=== PATIENT | female | born 2000 | race Caucasian/White ===

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

== ENCOUNTER 2022-08-04 11:55 | Inpatient (IN) ==
[2022-08-04 13:23] LABS: Basophils # (auto) 0.05 K/uL (0-0.2); Basophils % (auto) 0.7 %; Eosinophils # (auto) 0.06 K/uL (0-0.50); Eosinophils % (auto) 0.8 %; Hematocrit (blood only) 40.8 % (34.1-44.9); Hemoglobin 13.9 g/dl (12.0-16.0); Immature Granulocytes # (auto) 0.02 K/uL (0.00-0.02); Immature Granulocytes % (auto) 0.3 %; Lymphocytes # (auto) 1.95 K/uL (1.2-3.4); Lymphocytes % (auto) 27.5 %; Mean Corpuscular Hemoglobin 29.1 pg (25.0-34.0); Mean Corpuscular Hgb Conc 34.1 g/dL (32.0-36.0); Mean Corpuscular Volume 85.5 fL (80.0-100.0); Mean Platelet Volume 9.1 fL (9.4-12.3); Monocytes # (auto) 0.61 K/uL (0.24-0.82); Monocytes % (auto) 8.6 %; Neutrophils # (auto) 4.41 K/uL (1.4-6.5); Neutrophils % (auto) 62.1 %; Platelet Count 323 K/uL (130-400); RDW Coefficient of Variation 12.2 % (11.5-14.5); RDW Standard Deviation 37.9 fL (36.4-46.3); Red Blood Count 4.77 M/uL (3.93-5.22)
[2022-08-04 13:54] LABS: Albumin Globulin Ratio 1.5 (0.9-2); Albumin Level 4.8 gm/dl (3.4-5.0); BUN Creatinine Ratio 9.8 (10-20); Bilirubin,Total 0.5 mg/dl (0.2-1.0); Calcium 10.1 mg/dl (8.5-10.1); Creatinine Clr Calc Pharmacy 77.8 ml/min; Est GFR (African American) 104.6 ml/min; Est GFR (Non-African American) 90.3 ml/min; Globulin 3.1 gm/dl (2.5-4.0); Potassium 3.8 mmol/L (3.5-5.1); Total Protein 7.9 gm/dl (6.0-8.3)
--- NOTE | 2022-08-04 14:56 | Emergency Department Note ---
Impression & Plan Bilateral leg numbness, Ambulatory dysfunction ED Provider Note HISTORY OF PRESENT ILLNESS: Patient is a 21-year-old female presenting bilateral lower extremity numbness and extremity numbness. Patient states that she has had numbness from her to hip down to her bilateral feet intermittently over the last few months. She states she has been following with a spine doctor and going to physical therapy without any relief in her symptoms. She states that since last night she has had constant numbness of her bilateral lower extremities and has had weakness and difficulty getting around. She also states that she is developed numbness of her right upper extremity. Denies any family history of multiple sclerosis. Denies any fevers or history of IV drug use. Denies any recent back injuries chiropractic medication of her neck. Denies any recent head injuries. ROS: Constitutional: No fever, chills, or weakness Skin: No rash or diaphoresis HENT: No headaches or congestion Eyes: No vision changes Cardio: No chest pain, palpitations or leg swelling Respiratory: No cough, wheezing or shortness of breath GI: No nausea, vomiting, diarrhea, constipation : No dysuria, polyuria MSK: No joint or back pain Neuro: No loss of sensation, confusion, focal deficits +numbness; +tingling Psychiatric: No mood changes PHYSICAL EXAM: Constitutional: Patient appears in no acute distress. HENT: Head: Normocephalic and atraumatic. Eyes: EOMI, PERRL Mouth/Throat: Mucous membranes moist. Neck: Trachea midline. Neck supple. Cardiovascular: RRR, No murmurs, rubs or gallops. Intact distal pulses. Pulmonary/Chest: No respiratory distress. Breath sounds clear and equal bilaterally. No wheezes or rales. Abdominal: BS +. Abdomen soft, no tenderness, rebound or guarding. Back: No midline spinal tenderness, no paraspinal tenderness, no CVA tenderness. Musculoskeletal: No edema, tenderness or deformity noted. Skin: Warm and dry. No rash, erythema, pallor or cyanosis Psychiatric: Appropriate mood and affect for situation. Neurological: Alert and keenly responsive. Facies symmetric. Able to raise eyebrows, close eyes, smile, puff mouth, stick out tongue, move tongue left and right and raise palate symmetrically. Able to shrug shoulders. PERRLA. SILT to forehead below eye and at jawline. Can hear soft nose bilaterally. Strength 4/5 in bilateral lower extremities. Reports sensation in bilateral lower extremities, but states it feels dull. MDM: - Vitals signs stable. - Laboratory workup grossly unremarkable. - MRI brain and lumbar spine wo contrast negative for acute pathology. - On reassessment, patient complaining of continued, persistent pain and numbness down her legs. She is unable to ambulate independently to the restroom. - Hospitalist consulted for admission. - Patient admitted to hospitalist Dr. French's service for further evaluation and management. ASSESSMENT AND PLAN: Diagnosis: bilateral lower extremity numbness; ambulatory dysfunction Plan: admit Past Med/Surg History Medical History Abdominal pain Severe with mild nausea (reason for procedure) Anxiety and depression History of COVID-19 Diagnosed 09/2020--asymptomatic, tested prior to scheduled procedure--no issues now Migraine without aura Spondylolysis Surgical History Encounter for biopsy Diagnostic Laparoscopy, Laparoscopic Appendectomy, Left ovarian biopsy, Repair umbilical hernia Caleb Vieira, DO 07/23/2021 H/O eye surgery bilateral tube placement for clogged tear ducts. H/O umbilical hernia repair Diagnostic Laparoscopy, Laparoscopic Appendectomy, Left ovarian biopsy, Repair umbilical hernia Caleb Vieira, DO 07/23/2021 History of esophagogastroduodenoscopy (EGD) (~11/06/20) History of laparoscopic appendectomy Diagnostic Laparoscopy, Laparoscopic Appendectomy, Left ovarian biopsy, Repair umbilical hernia Caleb Vieira, DO 07/23/2021 History of tonsillectomy S/P colonoscopy Family History Aunt Cancer STOMACH CANCER Mother Cervical cancer Other Diabetes No family history of adverse response to anesthesia Denies family history of Ovarian cancer Crohn's disease Breast cancer Colorectal cancer Ulcerative colitis Uterine cancer Social History Smoking Status: Never smoker Tobacco Type: E-cigarettes / Vaping Second Hand Exposure: Yes (parents smoke); Hx Alcohol Use: No Hx Substance Use: No Preferred Language: Monegasque Communication Ability: Effective 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 Beliefs That Will Affect Care: None marital status: Single Current Living Situation: Family Current Living Situation Comment: Lives with parents/grandparents/sister current occupational status: employed Feels Safe at Home: Yes Assistive Devices: Contacts and Glasses Allergies Allergies Allergy/AdvReac Type Severity Reaction Status Date / Time Penicillins Allergy Unknown HAPPENED Verified 06/24/22 09:20 AN Home Meds Home Medications Medication Instructions Recorded Confirmed acetaminophen 500 mg tablet 500 mg PO Q6H PRN Pain 07/21/21 06/24/22 (Tylenol Extra Strength) sucralfate 1 gram tablet 1 g PO AMHS 07/22/21 06/24/22 bupropion HCl 150 mg 24 hr tablet, 150 mg PO QAM 03/06/22 06/24/22 extended release famotidine 20 mg tablet 20 mg PO BID 03/06/22 06/24/22 hydroxyzine pamoate 25 mg capsule 25 mg PO HS PRN Anxiety 03/06/22 06/24/22 prochlorperazine maleate 5 mg 5 mg PO DIRECTED PRN Nausea 03/06/22 06/24/22 tablet clindamycin phosphate 1 % lotion 1 applic topical QAM 06/01/22 06/24/22 doxycycline hyclate 100 mg tablet 100 mg PO QAM 06/01/22 06/24/22 naproxen 500 mg tablet 500 mg PO BID 06/01/22 06/24/22 Previous Rx's Medication Instructions Recorded promethazine 12.5 mg tablet 12.5 mg PO TID PRN nausea and 07/19/21 vomiting #20 tabs tretinoin 0.05 % topical cream 1 applic topical .COMPLEX #45 grams 11/12/21 ketorolac 10 mg tablet 10 mg PO Q6H #20 tabs 03/09/22 amitriptyline 10 mg tablet See Rx Instructions .Route 03/31/22 .COMPLEX #30 tabs medroxyprogesterone 150 mg/mL 150 mg IM ONCE #1 mL 05/26/22 intramuscular suspension (Depo-Provera) ibuprofen 600 mg tablet 600 mg PO Q8H PRN pain #20 tabs 06/07/22 ondansetron HCl 4 mg tablet 4 mg PO Q8H PRN nausea and 06/07/22 vomiting #20 tabs oxycodone-acetaminophen 5 mg-325 1 tab PO Q6H PRN pain #20 tabs 06/07/ mg tablet (Percocet) hydrocodone 5 mg-acetaminophen 325 1 tab PO Q8H PRN pain #20 tabs 06/08/22 mg tablet Results & Data (ED) Vital Signs Vital Signs - 24 hr 08/04/22 11:59 08/04/22 15:00 08/04/22 15:00 Temperature 36.0 C L Temperature Source Temporal Artery Scan Pulse Rate 94 H 75 Pulse Rate [Right Finger] Pulse Rate from SpO2 Sensor 78 Pulse Rhythm Regular Pulse Strength Normal Respiratory Rate 20 19 Respiratory Effort / Characteristics Non-Labored Spontaneous Respiratory Depth Normal Respiratory Pattern Regular Blood Pressure 116/76 120/73 Blood Pressure [Right Arm] Blood Pressure Mean 89 88 Blood Pressure Mean [Right Arm] Blood Pressure Position Sitting Pulse Oximetry 98 100 Oxygen Delivery Method Room Air Sepsis Recent Fever Within 48 Hours No Sepsis New/Unexplained Change in Mental Status No Sepsis Action Taken by Nursing No Action Required 08/04/22 16:36 08/04/22 16:36 08/04/22 17:00 Temperature Temperature Source Pulse Rate 83 Pulse Rate [Right Finger] Pulse Rate from SpO2 Sensor 79 Pulse Rhythm Pulse Strength Respiratory Rate 23 Respiratory Effort / Characteristics Respiratory Depth Respiratory Pattern Blood Pressure 105/66 107/70 Blood Pressure [Right Arm] Blood Pressure Mean 79 82 Blood Pressure Mean [Right Arm] Blood Pressure Position Pulse Oximetry 99 Oxygen Delivery Method Sepsis Recent Fever Within 48 Hours Sepsis New/Unexplained Change in Mental Status Sepsis Action Taken by Nursing 08/04/22 17:00 08/04/22 19:04 Temperature Temperature Source Pulse Rate 75 Pulse Rate [Right Finger] 74 Pulse Rate from SpO2 Sensor 77 Pulse Rhythm Pulse Strength Respiratory Rate 18 21 Respiratory Effort / Characteristics Respiratory Depth Normal Respiratory Pattern Blood Pressure Blood Pressure [Right Arm] 116/73 Blood Pressure Mean Blood Pressure Mean [Right Arm] 87 Blood Pressure Position Pulse Oximetry 100 98 Oxygen Delivery Method Room Air Sepsis Recent Fever Within 48 Hours Sepsis New/Unexplained Change in Mental Status Sepsis Action Taken by Nursing Laboratory Data Result diagrams: 08/04/22 13:12 08/04/22 13:12 Lab Results 08/04/22 08/04/22 08/04/22 Range/Units 13:12 13:12 13:12 WBC 7.10 (4.8-10.8) K/ul RBC 4.77 (3.93-5.22) M/uL Hgb 13.9 (12.0-16.0) g/dl Hct 40.8 (34.1-44.9) % MCV 85.5 (80.0-100.0) fL MCH 29.1 (25.0-34.0) pg MCHC 34.1 (32.0-36.0) g/dL RDW Std Deviation 37.9 (36.4-46.3) fL RDW Coeff of Jennifer 12.2 (11.5-14.5) % Plt Count 323 (130-400) K/uL MPV 9.1 L (9.4-12.3) fL Immature Gran % (Auto) 0.3 % Neut % (Auto) 62.1 % Lymph % (Auto) 27.5 % [place] % (Auto) 8.6 % Eos % (Auto) 0.8 % Baso % (Auto) 0.7 % Neut # (Auto) 4.41 (1.4-6.5) K/uL Lymph # (Auto) 1.95 (1.2-3.4) K/uL [place] # (Auto) 0.61 (0.24-0.82) K/uL Eos # (Auto) 0.06 (0-0.50) K/uL Baso # (Auto) 0.05 (0-0.2) K/uL Immature Gran # (Auto) 0.02 (0.00-0.02) K/uL Sodium 139 (136-145) mmol/L Potassium 3.8 (3.5-5.1) mmol/L Chloride 107 (98-107) mmol/L Carbon Dioxide 25 (21-32) mmol/L Anion Gap 7 (3-11) BUN 9 (6-23) mg/dl Creatinine 0.92 (0.6-1.2) mg/dl Est Cr Clr Drug Dosing 77.8 ml/min Est GFR ( Amer) 104.6 ml/min Est GFR (Non-Af Amer) 90.3 ml/min BUN/Creatinine Ratio 9.8 L (10-20) Glucose 86 (70-99(Fasting)) mg/dl Calcium 10.1 (8.5-10.1) mg/dl Magnesium 2.1 (1.7-2.4) mg/dl Total Bilirubin 0.5 (0.2-1.0) mg/dl AST 20 (13-39) U/L ALT 18 (7-52) U/L Alkaline Phosphatase 50 (34-104) U/L Total Protein 7.9 (6.0-8.3) gm/dl Albumin 4.8 (3.4-5.0) gm/dl Globulin 3.1 (2.5-4.0) gm/dl Albumin/Globulin Ratio 1.5 (0.9-2) Urine Color Urine Appearance (Clear) Urine pH (4.5-7.5) Ur Specific [place] (1.000-1.030) Urine Protein (Negative) Urine Glucose (UA) (Negative) Urine Ketones (Negative) Urine Blood (Negative) Urine Nitrite (Negative) Urine Bilirubin (Negative) Urine Urobilinogen (Negative) Ur Leukocyte Esterase (Negative) 08/04/22 Range/Units 16:35 WBC (4.8-10.8) K/ul RBC (3.93-5.22) M/uL Hgb (12.0-16.0) g/dl Hct (34.1-44.9) % MCV (80.0-100.0) fL MCH (25.0-34.0) pg MCHC (32.0-36.0) g/dL RDW Std Deviation (36.4-46.3) fL RDW Coeff of Jennifer (11.5-14.5) % Plt Count (130-400) K/uL MPV (9.4-12.3) fL Immature Gran % (Auto) % Neut % (Auto) % Lymph % (Auto) % [place] % (Auto) % Eos % (Auto) % Baso % (Auto) % Neut # (Auto) (1.4-6.5) K/uL Lymph # (Auto) (1.2-3.4) K/uL [place] # (Auto) (0.24-0.82) K/uL Eos # (Auto) (0-0.50) K/uL Baso # (Auto) (0-0.2) K/uL Immature Gran # (Auto) (0.00-0.02) K/uL Sodium (136-145) mmol/L Potassium (3.5-5.1) mmol/L Chloride (98-107) mmol/L Carbon Dioxide (21-32) mmol/L Anion Gap (3-11) BUN (6-23) mg/dl Creatinine (0.6-1.2) mg/dl Est Cr Clr Drug Dosing ml/min Est GFR ( Amer) ml/min Est GFR (Non-Af Amer) ml/min BUN/Creatinine Ratio (10-20) Glucose (70-99(Fasting)) mg/dl Calcium (8.5-10.1) mg/dl Magnesium (1.7-2.4) mg/dl Total Bilirubin (0.2-1.0) mg/dl AST (13-39) U/L ALT (7-52) U/L Alkaline Phosphatase (34-104) U/L Total Protein (6.0-8.3) gm/dl Albumin (3.4-5.0) gm/dl Globulin (2.5-4.0) gm/dl Albumin/Globulin Ratio (0.9-2) Urine Color Yellow Urine Appearance Clear (Clear) Urine pH 6.5 (4.5-7.5) Ur Specific [place] 1.006 (1.000-1.030) Urine Protein Negative (Negative) Urine Glucose (UA) Negative (Negative) Urine Ketones Negative (Negative) Urine Blood Negative (Negative) Urine Nitrite Negative (Negative) Urine Bilirubin Negative (Negative) Urine Urobilinogen Negative (Negative) Ur Leukocyte Esterase Negative (Negative) Administered Medications Discontinued Medications Ketorolac Tromethamine (Ketorolac 30 Mg/Ml Vial) 30 mg IV NOW ONE Stop: 08/04/22 18:10 Last Admin: 08/04/22 18:27 Dose: 30 mg Documented By: MISBAH Imaging Data Radiologist's Impression: Internal Auditory Canal MRI 08/04/22 14:50 MR brain IAC wo con HISTORY: 21 years-old Female bilateral LE numbness and weakness; RUE numbness acute right upper extremity numbness with headache and dizziness COMPARISON: None TECHNIQUE: Multiplanar multisequence MRI of the brain was obtained without the use of IV contrast utilizing internal auditory canal protocol. FINDINGS: There is no restricted diffusion to suggest acute or subacute infarct. Midline structures appear normal. No pathologic blooming artifact. No acute intracranial hemorrhage, midline shift, abnormal extra-axial collection, hydrocephalus or intracranial mass. Volume and signal of the brain parenchyma is within normal limits. The study is mildly motion degraded. No mass of the cerebellar pontine angles. The internal auditory canals, VII and VII cranial nerves appear normal. The cisternal portions of the 5th cranial nerves are within normal limits. Cerebral venous sinuses and major arterial flow voids appear patent. Skull, orbits and soft tissues are unremarkable. IMPRESSION: 1. Normal MRI of the brain. 2. Normal appearance of the internal auditory canals, VII and VII cranial nerves . ACT 112: Negative or not required by law. The above report was generated using voice recognition software. It may contain grammatical, syntax or spelling errors. Electronically signed by: Naldo Ribera M.D. 08/04/2022 4:09 PM Lumbar Spine MRI 08/04/22 14:50 MR lumbar spine wo con CLINICAL HISTORY: 21 years-old Female with bilateral lower extremity numbness and weakness. Patient currently complains of numbness of the upper and lower extremities COMPARISON: CT abdomen and pelvis 03/22/2022 TECHNIQUE: Multiplanar, multi sequence MRI of the lumbar spine was performed without intravenous contrast. FINDINGS: Anteflexed uterus. Moderately distended urinary bladder. Bilateral pelviectasis. Motion degraded exam. Conus medullaris terminates at T12-L1. Normal signal within the imaged thoracic spinal cord. There is no acute fracture, subluxation, endplate erosion or significant marrow edema. Intervertebral disc spaces are generally well maintained aside from minimal posterior disc space narrowing at L4-L5. T12-L1: No central canal or neural foraminal stenosis. L1-L2: No central canal or neural foraminal stenosis. L2-L3: No central canal or neural foraminal stenosis. L3-L4: No central canal or neural foraminal stenosis. L4-L5: No central canal or neural foraminal stenosis. L5-S1: No central canal or neural foraminal stenosis. IMPRESSION: Unremarkable exam. No significant discogenic degeneration, central canal or neural foraminal narrowing. ACT 112: Negative or not required by law. The above report was generated using voice recognition software. It may contain grammatical, syntax or spelling errors. Electronically signed by: Naldo Ribera M.D. 08/04/2022 4:28 PM Discharge Plan Visit Data Chief Complaint: Neuro Symptoms/Deficit Stated Complaint: Bilat nerve pain legs, r arm ED Provider: Joselin Degroot Discharge Problem: Bilateral leg numbness, Ambulatory dysfunction Patient Disposition: Admitted As Inpatient Forms Stand Alone Forms: My [facility] Prescriptions Prescriptions: No Action amitriptyline 10 mg tablet See Rx Instructions .ROUTE .COMPLEX Qty: 30 11RF Dose Instruction: take 1 tablet by mouth once daily Rx Instructions: take 1 tablet by mouth once daily hydrocodone-acetaminophen 5-325 mg tablet 1 tab PO Q8H PRN (Reason: pain) Qty: 20 0RF medroxyprogesterone [Depo-Provera] 150 mg/mL suspension 150 mg IM ONCE Qty: 1 3RF Rx Instructions: Perform 1 injection every 12 weeks as scheduled tretinoin 0.05 % cream 1 applic topical .COMPLEX Qty: 45 2RF Rx Instructions: 1 applic topical; a pea-sized amount to the face every night followed by moisturizer. ketorolac 10 mg tablet 10 mg PO Q6H Qty: 20 0RF promethazine 12.5 mg tablet 12.5 mg PO TID PRN (Reason: nausea and vomiting) Qty: 20 0RF Rx Instructions: 3 doses during day; last dose no later than 4 hr before bedtime sucralfate 1 gram tablet 1 g PO AMHS famotidine 20 mg tablet 20 mg PO BID bupropion HCl 150 mg tablet extended release 24 hr 150 mg PO QAM prochlorperazine maleate 5 mg tablet 5 mg PO DIRECTED PRN (Reason: Nausea) hydroxyzine pamoate 25 mg capsule 25 mg PO HS PRN (Reason: Anxiety) acetaminophen [Tylenol Extra Strength] 500 mg tablet 500 mg PO Q6H PRN (Reason: Pain) doxycycline hyclate 100 mg tablet 100 mg PO QAM Rx Instructions: Take with a meal. Do not take at the same time as sucralfate. clindamycin phosphate 1 % lotion 1 applic topical QAM Rx Instructions: Apply to the face in the morning. naproxen 500 mg Tablet 500 mg PO BID ondansetron HCl 4 mg tablet 4 mg PO Q8H PRN (Reason: nausea and vomiting) Qty: 20 0RF oxycodone-acetaminophen [Percocet] 5-325 mg tablet 1 tab PO Q6H PRN (Reason: pain) Qty: 20 0RF ibuprofen 600 mg tablet 600 mg PO Q8H PRN (Reason: pain) Qty: 20 0RF Referrals Referrals: Margot Vivas DO [Primary Care Provider] -
--- NOTE | 2022-08-04 16:10 | Magnetic Resonance Report ---
MR brain IAC wo con HISTORY: 21 years-old Female bilateral LE numbness and weakness; RUE numbness acute right upper extr emity numbness with headache and dizziness COMPARISON: None TECHNIQUE: Multiplanar multisequence MRI of the brain was obtained without the use of IV contrast uti lizing internal auditory canal protocol. FINDINGS: There is no restricted diffusion to suggest acute or subacute infarct. Midline structures appear norm al. No pathologic blooming artifact. No acute intracranial hemorrhage, midline shift, abnormal extra- axial collection, hydrocephalus or intracranial mass. Volume and signal of the brain parenchyma is wi thin normal limits. The study is mildly motion degraded. No mass of the cerebellar pontine angles. Th e internal auditory canals, VII and VII cranial nerves appear normal. The cisternal portions of the 5 th cranial nerves are within normal limits. Cerebral venous sinuses and major arterial flow voids appear patent. Skull, orbits and soft tissues a re unremarkable. IMPRESSION: 1. Normal MRI of the brain. 2. Normal appearance of the internal auditory canals, VII and VII cranial nerves . ACT 112: Negative or not required by law. The above report was generated using voice recognition software. It may contain grammatical, syntax o r spelling errors. Electronically signed by: Naldo Ribera M.D. 08/04/2022 4:09 PM
--- NOTE | 2022-08-04 16:30 | Magnetic Resonance Report ---
MR lumbar spine wo con CLINICAL HISTORY: 21 years-old Female with bilateral lower extremity numbness and weakness. Patient currently complains of numbness of the upper and lower extremities COMPARISON: CT abdomen and pelvis 03/22/2022 TECHNIQUE: Multiplanar, multi sequence MRI of the lumbar spine was performed without intravenous cont rast. FINDINGS: Anteflexed uterus. Moderately distended urinary bladder. Bilateral pelviectasis. Motion degraded exam . Conus medullaris terminates at T12-L1. Normal signal within the imaged thoracic spinal cord. There is no acute fracture, subluxation, endplate erosion or significant marrow edema. Intervertebral disc spaces are generally well maintained aside from minimal posterior disc space narrowing at L4-L5. T12-L1: No central canal or neural foraminal stenosis. L1-L2: No central canal or neural foraminal stenosis. L2-L3: No central canal or neural foraminal stenosis. L3-L4: No central canal or neural foraminal stenosis. L4-L5: No central canal or neural foraminal stenosis. L5-S1: No central canal or neural foraminal stenosis. IMPRESSION: Unremarkable exam. No significant discogenic degeneration, central canal or neural edna inal narrowing. ACT 112: Negative or not required by law. The above report was generated using voice recognition software. It may contain grammatical, syntax o r spelling errors. Electronically signed by: Naldo Ribera M.D. 08/04/2022 4:28 PM
[2022-08-04 17:14] LABS: Appearance Urine Clear (Clear); Bilirubin Urine Negative (Negative); Blood Urine Negative (Negative); Color Urine Yellow; Glucose Urine UA Negative (Negative); Ketones Urine Negative (Negative); Leukocyte Esterase Urine Negative (Negative); Nitrite Urine Negative (Negative); Protein Urine Negative (Negative); Specific Gravity Urine 1.006 (1.000-1.030); Urobilinogen Urine Negative (Negative); pH Urine 6.5 (4.5-7.5)
[2022-08-04] MEDS ORDERED: KETOROLAC 30 MG/ML VIAL IV ONE (18:09)
--- NOTE | 2022-08-04 20:34 | History & Physical Report ---
Date of Service August 04, 2022 Assessment & Plan (1) Bilateral leg numbness: Plan: 21 y/o female w/ pmhx of large amount of medical workup for chronic abdominal symptoms who presents for ble numbness/weakness/inability to ambulate. ddx: neuropathy (MS, gullaine barre, tickborne), atypical migraine, sciatica, psychogenic. MRI reassuring. will not consult ortho spine at this time; consult neuro consider LP and MRI brain; has had months of paresthesias w/ some migratory type symptoms MRI reviewed. 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 check b12, folate (2) Ambulatory dysfunction: Plan: - consult PT and OT (3) Anxiety and depression: Plan: - continue home regimen Plan FEN/GI: regular ppx: scds code: full dispo: med/surg History of Present Illness Chief Complaint: lower extremity radicular symptoms Primary Care Provider: Margot Vivas, DO 21 y/o female w/ pmhx of large amount of medical workup for chronic abdominal symptoms who presents for BLE numbness/weakness/inability to ambulate. She has had constant radicular pain since this summer with intermittent numbness/tingling down to toes. This evening's presentation involved constant paresthesias and worsened pain. It affect one leg then the other. She saw her pcp her symptoms a few weeks ago. She has not seen neuro for this; saw in Nov 2021 for migraines. The previous night, she noted R arm numbness/tingling that resolved after 30 minute. She denies increased stress. She had surgery for endometriosis in May 2022 and diagnostic laparascopy in 07/2021 for chronic abd pains. She states her and abd symptoms have resolved. Denies incontinence. Today, she has had new groin numbness. She endorsed dizziness; MRI brain IAC was normal. MRI L spine was normal. There was minimal posterior space narrowing at L4-L5. 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 ED course: toradol. cbc, cmp, ua neg Allergies Allergy/AdvReac Type Severity Reaction Status Date / Time Penicillins Allergy Unknown HAPPENED Verified 08/04/22 21:35 AN Home Medications Medication Instructions Recorded Confirmed Type acetaminophen 500 mg tablet 1,000 mg PO Q6H PRN Pain 07/21/21 08/04/22 History (Tylenol Extra Strength) bupropion HCl 150 mg 24 hr tablet, 150 mg PO QAM 03/06/22 08/04/22 History extended release medroxyprogesterone 150 mg/mL 150 mg IM ONCE #1 mL 05/26/22 08/04/22 Rx intramuscular suspension (Depo-Provera) ondansetron HCl 4 mg tablet 4 mg PO Q8H PRN nausea and 06/07/22 08/04/22 Rx vomiting #20 tabs amitriptyline 10 mg tablet 10 mg PO DAILY 08/04/22 08/04/22 History eszopiclone 1 mg tablet 1 mg PO HS PRN Insomnia 08/04/22 08/04/22 History Past Med/Surg History Medical History (Updated 08/05/22 @ 07:01 by Ricci Bonner MD) Abdominal pain Severe with mild nausea (reason for procedure) Anxiety and depression History of COVID-19 Diagnosed 09/2020--asymptomatic, tested prior to scheduled procedure--no issues now Migraine without aura Spondylolysis Surgical History Encounter for biopsy Diagnostic Laparoscopy, Laparoscopic Appendectomy, Left ovarian biopsy, Repair umbilical hernia Caleb Vieira, DO 07/23/2021 H/O eye surgery bilateral tube placement for clogged tear ducts. H/O umbilical hernia repair Diagnostic Laparoscopy, Laparoscopic Appendectomy, Left ovarian biopsy, Repair umbilical hernia Caleb Vieira, DO 07/23/2021 History of esophagogastroduodenoscopy (EGD) (~11/06/20) History of laparoscopic appendectomy Diagnostic Laparoscopy, Laparoscopic Appendectomy, Left ovarian biopsy, Repair umbilical hernia Caleb Vieira, DO 07/23/2021 History of tonsillectomy S/P colonoscopy Family History Aunt Cancer STOMACH CANCER Mother Cervical cancer Other Diabetes No family history of adverse response to anesthesia Denies family history of Ovarian cancer Crohn's disease Breast cancer Colorectal cancer Ulcerative colitis Uterine cancer Social History Smoking Status: Never smoker Tobacco Type: E-cigarettes / Vaping Second Hand Exposure: Yes (parents, boyfriend); Do You Dip or Chew Tobacco: No; Tobacco Cessation Education Requested by Patient: No Hx Alcohol Use: No Hx Substance Use: No Preferred Language: Lebanese Communication Ability: Effective Blackener Required: No Beliefs That Will Affect Care: None marital status: Single Current Living Situation: Family Current Living Situation Comment: Lives with Uncle current occupational status: employed Other Information That Helps Us Care for You: No Feels Safe at Home: Yes Safety Concerns: Feels Safe At This Time Assistive Devices: Contacts and Glasses Review of Systems Review of Systems: All systems reviewed & are unremarkable except as noted in HPI & below Physical Exam Physical Exam: General: Grossly A&O. NAD. Cooperative. HEENT: Atraumatic, normocephalic. EOMI. PERRL Pulm: CTAB. -wheezes, -rales, -rhonchi. No respiratory distress. Cardiac: RRR, -mrg. Radial pulses intact and symmetrical. Abdominal: Nontender, nondistended, soft. neuro: 5+/5 BUE BLE. Normal sensation. Neg finger to nose. CN II-XII intact. Symmetric patellar reflex bilat, ~1+ Msk: ttp entire low back. needed assistance w/ transfer from supine to sitting on edge of [facility] Results & Data Results & Data ([facility]) Vital Signs (Past 12 Hours) Vital Signs Temp Pulse Pulse Resp BP BP Pulse Ox 08/04/22 19:04 74 21 116/73 98 08/04/22 17:00 75 18 100 08/04/22 17:00 107/70 08/04/22 16:36 83 23 99 08/04/22 16:36 105/66 08/04/22 15:00 75 19 100 08/04/22 15:00 120/73 08/04/22 11:59 36.0 C L 94 H 20 116/76 98 O2 Del Method 08/04/22 19:04 Room Air 08/04/22 17:00 08/04/22 17:00 08/04/22 16:36 08/04/22 16:36 08/04/22 15:00 08/04/22 15:00 08/04/22 11:59 Room Air Laboratory Results Cardiac Enzymes 08/04/22 Range/Units 13:12 AST 20 (13-39) U/L CBC 08/04/22 Range/Units 13:12 WBC 7.10 (4.8-10.8) K/ul RBC 4.77 (3.93-5.22) M/uL Hgb 13.9 (12.0-16.0) g/dl Hct 40.8 (34.1-44.9) % Plt Count 323 (130-400) K/uL Neut # (Auto) 4.41 (1.4-6.5) K/uL Lymph # (Auto) 1.95 (1.2-3.4) K/uL Wheeler # (Auto) 0.61 (0.24-0.82) K/uL Eos # (Auto) 0.06 (0-0.50) K/uL Baso # (Auto) 0.05 (0-0.2) K/uL Comprehensive Metabolic Panel 08/04/22 Range/Units 13:12 Sodium 139 (136-145) mmol/L Potassium 3.8 (3.5-5.1) mmol/L Chloride 107 (98-107) mmol/L Carbon Dioxide 25 (21-32) mmol/L BUN 9 (6-23) mg/dl Creatinine 0.92 (0.6-1.2) mg/dl Glucose 86 (70-99(Fasting)) mg/dl Calcium 10.1 (8.5-10.1) mg/dl AST 20 (13-39) U/L ALT 18 (7-52) U/L Alkaline Phosphatase 50 (34-104) U/L Total Protein 7.9 (6.0-8.3) gm/dl Albumin 4.8 (3.4-5.0) gm/dl Intake and Output 08/04/22 08/04/22 08/04/22 06:59 14:59 22:59 Other: Weight 58.4 kg Weight Measurement Method Chair Scale Patient Weight 08/05/22 06:59 Weight 58.4 kg Diagnostic Findings Internal Auditory Canal MRI 08/04/22 14:50 MR brain IAC wo con HISTORY: 21 years-old Female bilateral LE numbness and weakness; RUE numbness acute right upper extremity numbness with headache and dizziness COMPARISON: None TECHNIQUE: Multiplanar multisequence MRI of the brain was obtained without the use of IV contrast utilizing internal auditory canal protocol. FINDINGS: There is no restricted diffusion to suggest acute or subacute infarct. Midline structures appear normal. No pathologic blooming artifact. No acute intracranial hemorrhage, midline shift, abnormal extra-axial collection, hydrocephalus or intracranial mass. Volume and signal of the brain parenchyma is within normal limits. The study is mildly motion degraded. No mass of the cerebellar pontine angles. The internal auditory canals, VII and VII cranial nerves appear normal. The cisternal portions of the 5th cranial nerves are within normal limits. Cerebral venous sinuses and major arterial flow voids appear patent. Skull, orbits and soft tissues are unremarkable. IMPRESSION: 1. Normal MRI of the brain. 2. Normal appearance of the internal auditory canals, VII and VII cranial nerves . ACT 112: Negative or not required by law. The above report was generated using voice recognition software. It may contain grammatical, syntax or spelling errors. Electronically signed by: Naldo Ribera M.D. 08/04/2022 4:09 PM Lumbar Spine MRI 08/04/22 14:50 MR lumbar spine wo con CLINICAL HISTORY: 21 years-old Female with bilateral lower extremity numbness and weakness. Patient currently complains of numbness of the upper and lower extremities COMPARISON: CT abdomen and pelvis 03/22/2022 TECHNIQUE: Multiplanar, multi sequence MRI of the lumbar spine was performed without intravenous contrast. FINDINGS: Anteflexed uterus. Moderately distended urinary bladder. Bilateral pelviectasis. Motion degraded exam. Conus medullaris terminates at T12-L1. Normal signal within the imaged thoracic spinal cord. There is no acute fracture, subluxation, endplate erosion or significant marrow edema. Intervertebral disc spaces are generally well maintained aside from minimal posterior disc space narrowing at L4-L5. T12-L1: No central canal or neural foraminal stenosis. L1-L2: No central canal or neural foraminal stenosis. L2-L3: No central canal or neural foraminal stenosis. L3-L4: No central canal or neural foraminal stenosis. L4-L5: No central canal or neural foraminal stenosis. L5-S1: No central canal or neural foraminal stenosis. IMPRESSION: Unremarkable exam. No significant discogenic degeneration, central canal or neural foraminal narrowing. ACT 112: Negative or not required by law. The above report was generated using voice recognition software. It may contain grammatical, syntax or spelling errors. Electronically signed by: Naldo Ribera M.D. 08/04/2022 4:28 PM Code Status & VTE Plan Code Status full VTE Prophylaxis Plan VTE Prophylaxis will be ordered: Yes Supervising Physician Co-Signing Physician Notes Patient seen and examined, chart reviewed, case discussed with Dr. Bonner and I agree with the assessment and plan as documented above. In brief, patient is a 21yo female with history of migraine, endometriosis presenting with bilateral LE numbness and difficulty ambulating. She has had intermittent numbness before as well. She follows with Dr. Ramos [facility], is undergoing PT as well. She has some groin numbness but denies urinary complaints. She also endorses an episode of upper extremity numbness several days ago. No visual changes, no urinary retention. No recent trauma, illness or vaccinations. Exam is unremarkable. Subjective numbness of bilateral LE. Strength and reflexes intact +S1/S2, regular, no m/r/g Lungs - CTA Abd - soft, NT/ND Ext - warm, well perfused Labs and images reviewed Assessment/Plan: bilateral LE numbness - intermittent now constant over the last several days. MRI L-spine obtained with no cord compression or enhancement. Etiology unclear. Concerning for more diffuse process given the fact that she recenty had upper extremity symptoms as well. Neuro exam is unremarkable May benefit from more thorough Neurological workup to include MRI C/T spine, LP for possible MS. Neuro consultation appreciated Remainder of plan as above Resident Activity Tracking Resident Involvement: Resident Care Provided Care Provided: Adult Hospital Medicine
[2022-08-04] MEDS ORDERED: DICLOFENAC SOD 1% GEL 100 GM TUBE EXT STA (23:25)
[2022-08-05] MEDS ORDERED: ONDANSETRON INJ 2 MG/ML 2 ML VIAL IV PRN (00:15)
[2022-08-05] MEDS: KETOROLAC TROMETHAMINE 15 MG/ML VIAL IV PRN ×2 (01:21→19:42)
[2022-08-05 06:13] LABS: Basophils # (auto) 0.04 K/uL (0-0.2); Basophils % (auto) 0.7 %; Eosinophils # (auto) 0.18 K/uL (0-0.50); Hematocrit (blood only) 37.4 % (34.1-44.9); Hemoglobin 12.7 g/dl (12.0-16.0); Immature Granulocytes # (auto) 0.01 K/uL (0.00-0.02); Immature Granulocytes % (auto) 0.2 %; Lymphocytes # (auto) 2.64 K/uL (1.2-3.4); Lymphocytes % (auto) 44.2 %; Mean Corpuscular Volume 85.4 fL (80.0-100.0); Mean Platelet Volume 9.3 fL (9.4-12.3); Monocytes % (auto) 11.7 %; Neutrophils % (auto) 40.2 %; Platelet Count 311 K/uL (130-400); RDW Coefficient of Variation 12.2 % (11.5-14.5); RDW Standard Deviation 38.2 fL (36.4-46.3); Red Blood Count 4.38 M/uL (3.93-5.22); White Blood Count 5.97 K/ul (4.8-10.8)
--- NOTE | 2022-08-05 06:25 | Billing Data ---
Date of Service August 04, 2022 Coding Level of Care Code 14426 Initial Inpt Care Lvl 2
[2022-08-05 06:31] LABS: Albumin Globulin Ratio 1.6 (0.9-2); Albumin Level 4.1 gm/dl (3.4-5.0); BUN Creatinine Ratio 11.7 (10-20); Bilirubin,Total 0.4 mg/dl (0.2-1.0); Calcium 9.2 mg/dl (8.5-10.1); Creatinine Clr Calc Pharmacy 84.3 ml/min; Est GFR (African American) 101.9 ml/min; Globulin 2.5 gm/dl (2.5-4.0); Magnesium 2.1 mg/dl (1.7-2.4); Total Protein 6.6 gm/dl (6.0-8.3)
[2022-08-05 06:55] LABS: Folate (Folic Acid) 6.66 ng/ml (>5.38)
[2022-08-05 07:01] LABS: Lyme Ab IgG w/WB Rflx Negative (Negative); Lyme Ab IgM w/WB Rflx Negative (Negative)
[2022-08-05] MEDS: buPROPion XL 150 MG TABCR PO SCH (10:08)
[2022-08-05] MEDS: AMITRIPTYLINE HCL 10 MG TAB PO SCH (10:09)
--- NOTE | 2022-08-05 14:36 | Neurology Consultation ---
Date of Consultation August 05, 2022 Assessment & Plan (1) Paresthesia of bilateral legs: Impression: The patient has been complaining of intermittent bilateral lower extremity paresthesias for last several months. She reports that since last Tuesday, she has been experiencing constant tingling sensation of lower extremities with new worsening lower extremity weakness, and decided to present to emergency department yesterday. She denies any falls, injuries, or pain. Brain and lumbar spine MRI without contrast were unremarkable. Normal deep tendon reflexes and inconsistencies with physical examination are not suggestive of acute neuro pathology as seen in GBS or myelopathy. However, the patient is still symptomatic, and willing to proceed with further work-up. Based on physical examination and negative imaging findings, functional etiology is likely in differential. Plan/recommendations: In sake of completeness, we will order cervical and thoracic spine MRI with and without contrast to rule out myelopathy. We will check serum vitamin B12, folic acid, and copper levels. Lyme titer. Lumbar puncture for CSF work-up including routine labs, and MS panel. Physical therapy and Occupational Therapy evaluations. If recommended work-up does not reveal any pathology to explain the patient's symptoms, then psychiatric consultation should be considered. Outpatient follow-up with neurology. The patient will need outpatient EMG and nerve conduction study of bilateral lower extremities. I will contact with [facility] neurology to set up a follow-up appointment. (2) Leg weakness, bilateral: As seen above. Plan Thank you for the consultation. History of Present Illness Reason for Consultation: Bilateral leg paresthesia and weakness Requesting Physician: Ricci Bonner Attending Physician: Chayo Cordero MD History of Present Illness The patient is a 21-year-old female, who was brought to emergency department yesterday, with complaints of bilateral lower extremity paresthesia and weakness. The patient reports that she has been having low back pain, and intermittent tingling sensation in lower extremities since March 2022. She has been followed by orthopedics and they have not found any good explanation of the patient's symptoms. Starting few days ago, the patient has been experiencing persistent tingling sensation in bilateral lower extremities, with recent lower extremity weakness, difficulty with ambulation, and presented emergency department yesterday and was admitted for further evaluation. She denies bowel or bladder symptoms, sphincter dysfunction, visual changes, sensorimotor symptoms in upper extremities, however, while she was in the emergency department, she reported 30 minutes of right upper extremity paresthesia. She has history of migraine, but denies having recent typical migraine attack. Since admission, the patient had brain MRI and lumbar spine MRI without contrast, which did not show any obvious abnormality. Laboratory work-up has been unremarkable. Based on my review of chart, the patient has been evaluated for recurrent abdominal and pelvic pain for many years. She denies recent travel, being on new medication, any trauma, or recent infections. Her stepfather with the patient today, and he denies any in family conflict. The patient is an online college student, and lives with her uncle. She has 2 siblings, without any neurological problem. She has no family history of MS or other neurological disorders. Today's neurological examination is somewhat atypical, with inconsistencies. After talking about recent MRI results, and our impression, she is willing to pursue with additional testing to rule out any neuropathology. I have reviewed the patient's chart including imaging studies and visualized t hem personally. I have discussed the case with the patient and other family member, available with the patient in her room. I have answered their questions in detail. Allergies Allergy/AdvReac Type Severity Reaction Status Date / Time Penicillins Allergy Unknown HAPPENED Verified 08/04/22 21:35 AN INFANT Home Medications Medication Instructions Recorded Confirmed Type acetaminophen 500 mg tablet 1,000 mg PO Q6H PRN Pain 07/21/21 08/04/22 History (Tylenol Extra Strength) bupropion HCl 150 mg 24 hr tablet, 150 mg PO QAM 03/06/22 08/04/22 History extended release medroxyprogesterone 150 mg/mL 150 mg IM ONCE #1 mL 05/26/22 08/04/22 Rx intramuscular suspension (Depo-Provera) ondansetron HCl 4 mg tablet 4 mg PO Q8H PRN nausea and 06/07/22 08/04/22 Rx vomiting #20 tabs amitriptyline 10 mg tablet 10 mg PO DAILY 08/04/22 08/04/22 History eszopiclone 1 mg tablet 1 mg PO HS PRN Insomnia 08/04/22 08/04/22 History Patient History Medical History (Updated 08/05/22 @ 14:31 by Kamari Lees MD) Abdominal pain Severe with mild nausea (reason for procedure) Anxiety and depression History of COVID-19 Diagnosed 09/2020--asymptomatic, tested prior to scheduled procedure--no issues now Migraine without aura Spondylolysis Surgical History Encounter for biopsy Diagnostic Laparoscopy, Laparoscopic Appendectomy, Left ovarian biopsy, Repair umbilical hernia Caleb Kelvin Vieira, DO 07/23/2021 H/O eye surgery bilateral tube placement for clogged tear ducts. H/O umbilical hernia repair Diagnostic Laparoscopy, Laparoscopic Appendectomy, Left ovarian biopsy, Repair umbilical hernia Caleb Vieira, DO 07/23/2021 History of esophagogastroduodenoscopy (EGD) (~11/06/20) History of laparoscopic appendectomy Diagnostic Laparoscopy, Laparoscopic Appendectomy, Left ovarian biopsy, Repair umbilical hernia Caleb Vieira, DO 07/23/2021 History of tonsillectomy S/P colonoscopy Family History Aunt Cancer STOMACH CANCER Mother Cervical cancer Other Diabetes No family history of adverse response to anesthesia Denies family history of Ovarian cancer Crohn's disease Breast cancer Colorectal cancer Ulcerative colitis Uterine cancer Social History Smoking Status: Never smoker Tobacco Type: E-cigarettes / Vaping Second Hand Exposure: Yes (parents, boyfriend); Do You Dip or Chew Tobacco: No; Tobacco Cessation Education Requested by Patient: No Hx Alcohol Use: No Hx Substance Use: No Preferred Language: Prydeinig Communication Ability: Effective On Call Pharmacy Technician Required: No Beliefs That Will Affect Care: None marital status: Single Current Living Situation: Family Current Living Situation Comment: Lives with Uncle current occupational status: employed Other Information That Helps Us Care for You: No Feels Safe at Home: Yes Safety Concerns: Feels Safe At This Time Assistive Devices: None Review of Systems Review of Systems: All systems reviewed & are unremarkable except as noted in HPI & below Physical Exam Physical Exam: General Examination: Constitutional: Well developed person in no apparent distress. HEENT: Normal exam with inspection. CV: Hearth rhythm is regular. Neck: Supple, no carotid bruits. Lungs: Non-labored and comfortable breathing. Abdomen: Soft, non-tender, non-distended. Skin: No rash or ecchymosis. Extremities: No edema or cyanosis NEUROLOGICAL EXAMINATION: Mental Status: Alert and oriented to place, person and time. Cranial Nerves: II-XII are intact. No nystagmus. Funduscopy: Normal looking optic discs. Motor: 5/5 in upper extremities without asymmetry. She shows significant weakness in lower extremity muscles initially, which improved some after insisting on shoving her full left forward. She was able to raise her legs against gravity for few seconds. Hip flexors were initially 2 out of 5, but after few trial, hip flexor strength is improved up to 4+ out of 5 bilaterally. Ankle dorsiflexors were initially 3- out of 5, but after repeated exam, improved to 5- out of 5. Some give-way phenomenon is noticed. Tone: Normal without spasticity or rigidity. DTRs: 2+ all without asymmetry. No Babinski. Sensory: Intact to all sensory modalities. The patient describes subjective tingling sensation in bilateral lower extremities symmetrically, up to groin. She has no sensory deficit based on physical examination. Coordination: No dysmetria with FTN testing. Speech: Fluent. Comprehension is intact. Gait: The patient can stand up and uses walker to ambulate. However, after taking walker away, she was able to walk independently but slowly. She shows some atypical walking pattern. Musculoskeletal: Normal muscle bulk, no atrophy. Results & Data ([facility]) Vital Signs (Past 12 Hours) Vital Signs Temp Pulse Resp BP Pulse Ox O2 Del Method 08/05/22 07:27 36.4 C L 79 18 89/56 L 99 Room Air Laboratory Results Laboratory Results - last 24 hr 08/04/22 08/04/22 08/04/22 13:12 16:35 20:34 WBC RBC Hgb Hct MCV MCH MCHC RDW Std Deviation RDW Coeff of Jennifer Plt Count MPV Immature Gran % (Auto) Neut % (Auto) Lymph % (Auto) Swift % (Auto) Eos % (Auto) Baso % (Auto) Neut # (Auto) Lymph # (Auto) Swift # (Auto) Eos # (Auto) Baso # (Auto) Immature Gran # (Auto) Sodium Potassium Chloride Carbon Dioxide Anion Gap BUN Creatinine Est Cr Clr Drug Dosing Est GFR ( Amer) Est GFR (Non-Af Amer) BUN/Creatinine Ratio Glucose Calcium Magnesium 2.1 Total Bilirubin AST ALT Alkaline Phosphatase Total Protein Albumin Globulin Albumin/Globulin Ratio Vitamin B12 Folate Urine Color Yellow Urine Appearance Clear Urine pH 6.5 Ur Specific [place] 1.006 Urine Protein Negative Urine Glucose (UA) Negative Urine Ketones Negative Urine Blood Negative Urine Nitrite Negative Urine Bilirubin Negative Urine Urobilinogen Negative Ur Leukocyte Esterase Negative Anaplasma Smear Babesia Smear Lyme Disease IgG Ab Lyme Disease IgM Ab SARS-CoV-2, RNA, NAAT NEGATIVE 08/05/22 08/05/22 08/05/22 05:27 05:27 05:27 WBC 5.97 RBC 4.38 Hgb 12.7 Hct 37.4 MCV 85.4 MCH 29.0 MCHC 34.0 RDW Std Deviation 38.2 RDW Coeff of Jennifer 12.2 Plt Count 311 MPV 9.3 L Immature Gran % (Auto) 0.2 Neut % (Auto) 40.2 Lymph % (Auto) 44.2 Swift % (Auto) 11.7 Eos % (Auto) 3.0 Baso % (Auto) 0.7 Neut # (Auto) 2.40 Lymph # (Auto) 2.64 Swift # (Auto) 0.70 Eos # (Auto) 0.18 Baso # (Auto) 0.04 Immature Gran # (Auto) 0.01 Sodium 140 Potassium 4.0 Chloride 109 H Carbon Dioxide 24 Anion Gap 7 BUN 11 Creatinine 0.94 Est Cr Clr Drug Dosing 84.3 Est GFR ( Amer) 101.9 Est GFR (Non-Af Amer) 88.0 BUN/Creatinine Ratio 11.7 Glucose 88 Calcium 9.2 Magnesium 2.1 Total Bilirubin 0.4 AST 15 ALT 13 Alkaline Phosphatase 43 Total Protein 6.6 Albumin 4.1 Globulin 2.5 Albumin/Globulin Ratio 1.6 Vitamin B12 Folate Cancelled Urine Color Urine Appearance Urine pH Ur Specific [place] Urine Protein Urine Glucose (UA) Urine Ketones Urine Blood Urine Nitrite Urine Bilirubin Urine Urobilinogen Ur Leukocyte Esterase Anaplasma Smear Babesia Smear Lyme Disease IgG Ab Lyme Disease IgM Ab SARS-CoV-2, RNA, NAAT 08/05/22 08/05/22 08/05/22 05:27 05:27 05:27 WBC RBC Hgb Hct MCV MCH MCHC RDW Std Deviation RDW Coeff of Jennifer Plt Count MPV Immature Gran % (Auto) Neut % (Auto) Lymph % (Auto) Swift % (Auto) Eos % (Auto) Baso % (Auto) Neut # (Auto) Lymph # (Auto) Swift # (Auto) Eos # (Auto) Baso # (Auto) Immature Gran # (Auto) Sodium Potassium Chloride Carbon Dioxide Anion Gap BUN Creatinine Est Cr Clr Drug Dosing Est GFR ( Amer) Est GFR (Non-Af Amer) BUN/Creatinine Ratio Glucose Calcium Magnesium Total Bilirubin AST ALT Alkaline Phosphatase Total Protein Albumin Globulin Albumin/Globulin Ratio Vitamin B12 247 Folate 6.66 Urine Color Urine Appearance Urine pH Ur Specific [place] Urine Protein Urine Glucose (UA) Urine Ketones Urine Blood Urine Nitrite Urine Bilirubin Urine Urobilinogen Ur Leukocyte Esterase Anaplasma Smear See Comment Babesia Smear See Comment Lyme Disease IgG Ab Negative Lyme Disease IgM Ab Negative SARS-CoV-2, RNA, NAAT Diagnostic Findings Internal Auditory Canal MRI 08/04/22 14:50 MR brain IAC wo con HISTORY: 21 years-old Female bilateral LE numbness and weakness; RUE numbness acute right upper extremity numbness with headache and dizziness COMPARISON: None TECHNIQUE: Multiplanar multisequence MRI of the brain was obtained without the use of IV contrast utilizing internal auditory canal protocol. FINDINGS: There is no restricted diffusion to suggest acute or subacute infarct. Midline structures appear normal. No pathologic blooming artifact. No acute intracranial hemorrhage, midline shift, abnormal extra-axial collection, hydrocephalus or intracranial mass. Volume and signal of the brain parenchyma is within normal limits. The study is mildly motion degraded. No mass of the cerebellar pontine angles. The internal auditory canals, VII and VII cranial nerves appear normal. The cisternal portions of the 5th cranial nerves are within normal limits. Cerebral venous sinuses and major arterial flow voids appear patent. Skull, orbits and soft tissues are unremarkable. IMPRESSION: 1. Normal MRI of the brain. 2. Normal appearance of the internal auditory canals, VII and VII cranial nerves . ACT 112: Negative or not required by law. The above report was generated using voice recognition software. It may contain grammatical, syntax or spelling errors. Electronically signed by: Naldo Ribera M.D. 08/04/2022 4:09 PM Lumbar Spine MRI 08/04/22 14:50 MR lumbar spine wo con CLINICAL HISTORY: 21 years-old Female with bilateral lower extremity numbness and weakness. Patient currently complains of numbness of the upper and lower extremities COMPARISON: CT abdomen and pelvis 03/22/2022 TECHNIQUE: Multiplanar, multi sequence MRI of the lumbar spine was performed without intravenous contrast. FINDINGS: Anteflexed uterus. Moderately distended urinary bladder. Bilateral pelviectasis. Motion degraded exam. Conus medullaris terminates at T12-L1. Normal signal within the imaged thoracic spinal cord. There is no acute fracture, subluxation, endplate erosion or significant marrow edema. Intervertebral disc spaces are generally well maintained aside from minimal posterior disc space narrowing at L4-L5. T12-L1: No central canal or neural foraminal stenosis. L1-L2: No central canal or neural foraminal stenosis. L2-L3: No central canal or neural foraminal stenosis. L3-L4: No central canal or neural foraminal stenosis. L4-L5: No central canal or neural foraminal stenosis. L5-S1: No central canal or neural foraminal stenosis. IMPRESSION: Unremarkable exam. No significant discogenic degeneration, central canal or neural foraminal narrowing. ACT 112: Negative or not required by law. The above report was generated using voice recognition software. It may contain grammatical, syntax or spelling errors. Electronically signed by: Naldo Ribera M.D. 08/04/2022 4:28 PM
--- NOTE | 2022-08-05 15:03 | Hospitalist Progress Note ---
Date of Service August 05, 2022 Assessment & Plan (1) Bilateral leg numbness: (2) Ambulatory dysfunction: (3) Anxiety and depression: Plan: - continue home regimen Plan 21 y/o female w/ pmhx of large amount of medical workup for chronic abdominal symptoms who presents for bilateral LE numbness and weakness. As well as inability to ambulate. Bilateral leg numbness: -ddx: neuropathy (MS, gullaine barre, tickborne), atypical migraine, sciatica, psychogenic. MRI lumbar reassuring. -Neuro consulted appreciate recommendations. MRI w/o of the cervical and thoracic spine. Will be getting lumbar puncture tomorrow and checking for vit b12, folic acid, copper, and lyme titers. Also recommends EMG and nerve conduction study outpatient if all other tests are negative. -MRI reviewed. 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 - performed muscle energy OMT on the patient's lumbar spine and sacrum. Patient then was able to stand and walk unassisted. She was still in some pain after OMT but tolerated it well and states that she feels better. Will see how patient feels and consider another treatment tomorrow. Ambulatory dysfunction: - consult PT and OT Anxiety and depression: - continue home regimen - may have some underlying psych issues making her issues worse. Will consider psych consult if negative workup persists. FEN/GI: regular ppx: scds code: full dispo: med/surg Admission and Anticipated Discharge Date Admission Date: August 04, 2022 Supervising Physician Co-Signing Physician Notes Resident Physician Supervision Note: I independently interviewed and examined the patient and verified the goss history and physical, reviewed labs and image studies and agree with resident findings and care plan. Subjective Patient was seen beside this AM. States that her bilateral LE paraesthesias has been intermittent for the past couple of months. Patient also states that she is willing to try OMT to help with the pain and symptoms. When leaving the room, patient's father approached me and told me that she normally gets like his when she is having issues with boys or some other reason. States that when symptoms started that she posted a long message on [employer] talking about the passing of the patient's grandfather. Review of Systems Review of Systems: Constitutional: denies fever, chills, fatigue HEENT: denies congestion, sore throat CV: denies chest pain, palpitations Resp: denies shortness of breath, cough GI: denies abdominal pain, nausea, vomiting, constipation, diarrhea : denies pain with urination, change in urinary frequency Neuro: + new numbness, tingling, weakness Physical Exam Constitutional: WD/WN, vitals as above Eyes: PERRL, conjunctivae normal, anicteric sclerae ENMT: external ear and nose normal, oropharynx normal Respiratory: normal respiratory effort, lungs clear to auscultation Cardiovascular: RRR, no murmur, no edema Gastrointestinal (Abdomen): normal bowel sounds, soft, nontender, no hepatosplenomegaly Musculoskeletal: Spine: + limited thoraco-lumbar ROM Extremities: + limited ROM of extremities (BL LE ) and strength 5/5 throughout Hip: + limited ROM of hip (BL LE ) Skin: no rashes, warm and dry Neurologic: patellar DTR's 2+ bilat, sensation intact Psychiatric: A+Ox3, euthymic affect Results & Data Results & Data ([facility]) Vital Signs (Past 12 Hours) Vital Signs Temp Pulse Resp BP Pulse Ox O2 Del Method 08/05/22 14:46 37.1 C 79 18 94/61 L 97 Room Air 08/05/22 07:27 36.4 C L 79 18 89/56 L 99 Room Air Resident Activity Tracking Resident Involvement: Resident Care Provided Care Provided: Adult Hospital Medicine
[2022-08-05] MEDS ORDERED: GADOBUTROL 65ML VIAL IV ONE (19:29)
--- NOTE | 2022-08-05 19:46 | Magnetic Resonance Report ---
CLINICAL HISTORY: new onset numbness and weakness in legs TECHNIQUE: MRI of the cervical spine is performed utilizing various T1 and T2 sequences in the axial and sagittal planes. IV contrast was administered for this examination. Comparison: None available at the time of this dictation. FINDINGS: The alignment is anatomical. Disks are normal in height and signal. C2-C3: Unremarkable. C3-C4: Unremarkable. C4-C5: Unremarkable. C5-C6: Unremarkable. C6-C7: Unremarkable. C7-T1: Unremarkable. The spinal ligaments are intact, without evidence of disruption or abnormal signal intensity. The spi nal cord is normal in signal intensity and there is no evidence of cord contusion. There is no eviden ce of an extradural, intradural, extramedullary or intramedullary lesion. Visualized soft tissues are normal. Visualized brain parenchyma is normal. IMPRESSION: No evidence of cord compression or significant neuroforaminal narrowing. No abnormal T2 signal or enh ancing lesions in the spine or visualized brain. ACT 112: Negative or not required by law. Electronically signed by: Marbin Chilel M.D. 08/05/2022 7:44 PM
--- NOTE | 2022-08-05 19:52 | Magnetic Resonance Report ---
MR thoracic spine wo/w con CLINICAL HISTORY: new onset numbness and weakness in legs TECHNIQUE: Multiplanar sequences through the thoracic spine were obtained, without and with intraveno us contrast. Comparison: None available at the time of this dictation. FINDINGS: The alignment is anatomical. Disks are normal in height and signal. The spinal canal and neural foramina are patent. The spinal ligaments are intact, without evidence of disruption or abnormal signal intensity. The spi nal cord is normal in signal intensity and there is no evidence of cord contusion. There is no eviden ce of an extradural, intradural, extramedullary or intramedullary lesion. Visualized soft tissues are normal. IMPRESSION: No canal or neuroforaminal stenosis. No abnormal enhancement or T2 hyperintensity in the spinal cord to suggest demyelinating process. ACT 112: Negative or not required by law. Electronically signed by: Marbin Chilel M.D. 08/05/2022 7:49 PM
--- NOTE | 2022-08-06 06:59 | Hospitalist Progress Note ---
Date of Service August 06, 2022 Assessment & Plan (1) Bilateral leg numbness: (2) Ambulatory dysfunction: (3) Anxiety and depression: Plan: - continue home regimen Plan 21 y/o female w/ pmhx of large amount of medical workup for chronic abdominal symptoms who presents for bilateral LE numbness and weakness. As well as inability to ambulate. Bilateral leg numbness: -ddx: neuropathy (MS, gullaine barre, tickborne), atypical migraine, sciatica, psychogenic. MRI lumbar reassuring. -Neuro consulted appreciate recommendations. MRI w/o of the cervical and thoracic spine. Will be getting lumbar puncture tomorrow and checking for vit b12, folic acid, copper, and lyme titers. Also recommends EMG and nerve conduction study outpatient if all other tests are negative. -MRI reviewed. 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 - performed muscle energy OMT on the patient's lumbar spine and sacrum. Patient then was able to stand and walk unassisted. She was still in some pain after OMT but tolerated it well and states that she feels better. Will see how patient feels and consider another treatment tomorrow. Ambulatory dysfunction: - consult PT and OT Anxiety and depression: - continue home regimen - may have some underlying psych issues making her issues worse. Will consider psych consult if negative workup persists. FEN/GI: regular ppx: scds code: full dispo: med/surg Admission and Anticipated Discharge Date Admission Date: August 04, 2022 Results & Data Results & Data ([facility]) Vital Signs (Past 12 Hours) Vital Signs Temp Pulse Resp BP Pulse Ox O2 Del Method 08/05/22 22:58 36.9 C 69 16 90/57 L 99 Room Air
[2022-08-06 10:06] LABS: Total Protein CSF 32.9 mg/dl (15-45)
[2022-08-06 10:32] LABS: Appearance CSF Clear; CSF Count Tube # 3; CSF Xanthrochromic No xanthochromia; Color CSF Colorless; Red Blood Cell CSF (A) 9 /uL (0-); White Blood Cell CSF (A) 1 /uL (0-5)
--- NOTE | 2022-08-06 10:45 | Fluoroscopy Report ---
FL lumbar puncture diagnostic CLINICAL HISTORY: 21 years-old Female with bilateral leg numbness and weakness. Acute lower extremit y weakness with numbness PROCEDURE: The risks, benefits, and alternatives to the procedure is discussed with the patient who v oiced understanding. Written informed consent was obtained. The patient was placed prone on the fluor oscopy table. The lower back was prepped and draped in the usual sterile fashion. 1% lidocaine was us ed for local anesthesia. A 20-gauge spinal needle was inserted into the L1-L2 interlaminar space, and approximately 10 cc of clear colorless cerebrospinal fluid was removed. The patient tolerated the pr ocedure well. There were no immediate complications. The patient was then transported to the medical treatment unit for further observation. Fluoroscopy time: 0.4 minutes IMPRESSION: Fluoroscopic guided lumbar puncture with removal of approximately 10 cc of cerebrospinal fluid. There were no immediate complications. ACT 112: Negative or not required by law. The above report was generated using voice recognition software. It may contain grammatical, syntax o r spelling errors. Electronically signed by: Naldo Ribera M.D. 08/06/2022 10:44 AM
[2022-08-06] MEDS: AMITRIPTYLINE HCL 10 MG TAB PO SCH (11:02)
[2022-08-06] MEDS: buPROPion XL 150 MG TABCR PO SCH (11:02)
[2022-08-06] MEDS: KETOROLAC TROMETHAMINE 15 MG/ML VIAL IV PRN (11:02)
[2022-08-06] MEDS ORDERED: traMADol HCL 50 MG TABLET PO PRN (12:23)
--- NOTE | 2022-08-06 12:58 | Neurology Progress Note ---
Date of Service August 06, 2022 Assessment & Plan (1) Paresthesia of bilateral legs: Plan: Impression: The patient has been complaining of intermittent bilateral lower extremity paresthesias for last several months. She reports that since last Tuesday, she has been experiencing constant tingling sensation of lower extremities with new worsening lower extremity weakness, and decided to present to emergency department yesterday. She denies any falls, injuries, or pain. Brain and lumbar spine MRI without contrast were unremarkable. Normal deep tendon reflexes and inconsistencies with physical examination are not suggestive of acute neuro pathology as seen in GBS or myelopathy. Since admission C and T spine MRIs w/wo contrast have been done without pathology. Initial CSF w/u have been normal. Some CSF lab results might take a week to get. We strongly believe that this is a non-organic process. Plan/recommendations: Counseling or psychiatry consultation. --Neurologically stable to discharge home. Outpatient follow-up with neurology. The patient will need outpatient EMG and nerve conduction study of bilateral lower extremities. I have contacted with [facility] neurology to set up a follow-up appointment. Will sign off. (2) Leg weakness, bilateral: Plan: As seen above. Admission and Anticipated Discharge Date Admission Date: August 04, 2022 Subjective The patient reports improvement of leg weakness but still shows some atypical walking pattern. Some low back pain from LP. Resting comfortably. MRIs are unremarkable as well as available CSF labs. Review of Systems Review of Systems: All systems reviewed & are unremarkable except as noted in HPI & below Physical Exam Physical Exam: General Examination: Constitutional: Well developed person in no apparent distress. HEENT: Normal exam with inspection. CV: Hearth rhythm is regular. Neck: Supple, no carotid bruits. Lungs: Non-labored and comfortable breathing. Abdomen: Soft, non-tender, non-distended. Skin: No rash or ecchymosis. Extremities: No edema or cyanosis NEUROLOGICAL EXAMINATION: Mental Status: Alert and oriented to place, person and time. Cranial Nerves: II-XII are intact. No nystagmus. Funduscopy: Normal looking optic discs. Motor: 5/5 in upper extremities without asymmetry. 5-/5 in lower extremities w/o asymmetry. Tone: Normal without spasticity or rigidity. DTRs: 2+ all without asymmetry. No Babinski. Sensory: Intact to all sensory modalities. The patient describes subjective tingling sensation in bilateral lower extremities symmetrically, up to groin. She has no sensory deficit based on physical examination. Coordination: No dysmetria with FTN testing. Speech: Fluent. Comprehension is intact. Gait: The patient can walk independently without cane or walker. She shows some atypical walking pattern. Musculoskeletal: Normal muscle bulk, no atrophy. Results & Data ([facility]) Vital Signs (Past 12 Hours) Vital Signs Temp Pulse Resp BP Pulse Ox O2 Del Method 08/06/22 07:17 37.1 C 72 12 93/61 L 99 Room Air Laboratory Results Laboratory Results - last 24 hr 08/06/22 08/06/22 08/06/22 07:45 09:12 09:12 Fluid Comment CSF Appearance CSF Color Xanthrochromic CSF WBC CSF RBC CSF Cell Count Tube # CSF Chemistry Tube # 1 CSF Glucose 50 CSF Total Protein 32.9 CSF Albumin CSF IgG CSF IgG Index CSF IgG Synthesis Rate CSF Myelin Basic Protein CSF IgG Oligoclonal Bnd CSF Lyme IgG (Immblot) CSF Lyme IgG Bands Det CSF Lyme IgM (Immblot) CSF Lyme IgM Bands Det CSF [place] IgM Ab Cancelled CSF [place] RNA Serum Copper Pending IgG Albumin (DORY) 08/06/22 08/06/22 08/06/22 09:15 09:15 09:19 Fluid Comment CSF Appearance Clear CSF Color Colorless Xanthrochromic No xanthochromia CSF WBC 1 CSF RBC 9 CSF Cell Count Tube # 3 CSF Chemistry Tube # CSF Glucose CSF Total Protein CSF Albumin Cancelled CSF IgG Cancelled CSF IgG Index Cancelled CSF IgG Synthesis Rate Cancelled CSF Myelin Basic Protein Cancelled CSF IgG Oligoclonal Bnd Cancelled CSF Lyme IgG (Immblot) Pending CSF Lyme IgG Bands Det Pending CSF Lyme IgM (Immblot) Pending CSF Lyme IgM Bands Det Pending CSF [place] IgM Ab CSF [place] RNA Pending Serum Copper Cancelled IgG Cancelled Albumin (DORY) Cancelled 08/06/22 09:19 Fluid Comment CSF Appearance CSF Color Xanthrochromic CSF WBC CSF RBC CSF Cell Count Tube # CSF Chemistry Tube # CSF Glucose CSF Total Protein CSF Albumin Pending CSF IgG Pending CSF IgG Index Pending CSF IgG Synthesis Rate Pending CSF Myelin Basic Protein Pending CSF IgG Oligoclonal Bnd Pending CSF Lyme IgG (Immblot) CSF Lyme IgG Bands Det CSF Lyme IgM (Immblot) CSF Lyme IgM Bands Det CSF [place] IgM Ab CSF [place] RNA Serum Copper IgG Pending Albumin (DORY) Pending Diagnostic Findings Internal Auditory Canal MRI 08/04/22 14:50 MR brain IAC wo con HISTORY: 21 years-old Female bilateral LE numbness and weakness; RUE numbness acute right upper extremity numbness with headache and dizziness COMPARISON: None TECHNIQUE: Multiplanar multisequence MRI of the brain was obtained without the use of IV contrast utilizing internal auditory canal protocol. FINDINGS: There is no restricted diffusion to suggest acute or subacute infarct. Midline structures appear normal. No pathologic blooming artifact. No acute intracranial hemorrhage, midline shift, abnormal extra-axial collection, hydrocephalus or intracranial mass. Volume and signal of the brain parenchyma is within normal limits. The study is mildly motion degraded. No mass of the cerebellar pontine angles. The internal auditory canals, VII and VII cranial nerves appear normal. The cisternal portions of the 5th cranial nerves are within normal limits. Cerebral venous sinuses and major arterial flow voids appear patent. Skull, orbits and soft tissues are unremarkable. IMPRESSION: 1. Normal MRI of the brain. 2. Normal appearance of the internal auditory canals, VII and VII cranial nerves . ACT 112: Negative or not required by law. The above report was generated using voice recognition software. It may contain grammatical, syntax or spelling errors. Electronically signed by: Naldo Ribera M.D. 08/04/2022 4:09 PM Lumbar Spine MRI 08/04/22 14:50 MR lumbar spine wo con CLINICAL HISTORY: 21 years-old Female with bilateral lower extremity numbness and weakness. Patient currently complains of numbness of the upper and lower e xtremities COMPARISON: CT abdomen and pelvis 03/22/2022 TECHNIQUE: Multiplanar, multi sequence MRI of the lumbar spine was performed without intravenous contrast. FINDINGS: Anteflexed uterus. Moderately distended urinary bladder. Bilateral pelviectasis. Motion degraded exam. Conus medullaris terminates at T12-L1. Normal signal within the imaged thoracic spinal cord. There is no acute fracture, subluxation, endplate erosion or significant marrow edema. Intervertebral disc spaces are generally well maintained aside from minimal posterior disc space narrowing at L4-L5. T12-L1: No central canal or neural foraminal stenosis. L1-L2: No central canal or neural foraminal stenosis. L2-L3: No central canal or neural foraminal stenosis. L3-L4: No central canal or neural foraminal stenosis. L4-L5: No central canal or neural foraminal stenosis. L5-S1: No central canal or neural foraminal stenosis. IMPRESSION: Unremarkable exam. No significant discogenic degeneration, central canal or neural foraminal narrowing. ACT 112: Negative or not required by law. The above report was generated using voice recognition software. It may contain grammatical, syntax or spelling errors. Electronically signed by: Naldo Ribera M.D. 08/04/2022 4:28 PM Cervical Spine MRI 08/05/22 15:44 CLINICAL HISTORY: new onset numbness and weakness in legs TECHNIQUE: MRI of the cervical spine is performed utilizing various T1 and T2 sequences in the axial and sagittal planes. IV contrast was administered for this examination. Comparison: None available at the time of this dictation. FINDINGS: The alignment is anatomical. Disks are normal in height and signal. C2-C3: Unremarkable. C3-C4: Unremarkable. C4-C5: Unremarkable. C5-C6: Unremarkable. C6-C7: Unremarkable. C7-T1: Unremarkable. The spinal ligaments are intact, without evidence of disruption or abnormal signal intensity. The spinal cord is normal in signal intensity and there is no evidence of cord contusion. There is no evidence of an extradural, intradural, extramedullary or intramedullary lesion. Visualized soft tissues are normal. Visualized brain parenchyma is normal. IMPRESSION: No evidence of cord compression or significant neuroforaminal narrowing. No abnormal T2 signal or enhancing lesions in the spine or visualized brain. ACT 112: Negative or not required by law. Electronically signed by: Marbin Chilel M.D. 08/05/2022 7:44 PM Thoracic Spine MRI 08/05/22 15:45 MR thoracic spine wo/w con CLINICAL HISTORY: new onset numbness and weakness in legs TECHNIQUE: Multiplanar sequences through the thoracic spine were obtained, without and with intravenous contrast. Comparison: None available at the time of this dictation. FINDINGS: The alignment is anatomical. Disks are normal in height and signal. The spinal canal and neural foramina are patent. The spinal ligaments are intact, without evidence of disruption or abnormal signal intensity. The spinal cord is normal in signal intensity and there is no evidence of cord contusion. There is no evidence of an extradural, intradural, extramedullary or intramedullary lesion. Visualized soft tissues are normal. IMPRESSION: No canal or neuroforaminal stenosis. No abnormal enhancement or T2 hyperintensity in the spinal cord to suggest demyelinating process. ACT 112: Negative or not required by law. Electronically signed by: Marbin Chilel M.D. 08/05/2022 7:49 PM Lumbar Puncture Fluoroscopy 08/06/22 08:30 FL lumbar puncture diagnostic CLINICAL HISTORY: 21 years-old Female with bilateral leg numbness and weakness. Acute lower extremity weakness with numbness PROCEDURE: The risks, benefits, and alternatives to the procedure is discussed with the patient who voiced understanding. Written informed consent was obtained. The patient was placed prone on the fluoroscopy table. The lower back was prepped and draped in the usual sterile fashion. 1% lidocaine was used for local anesthesia. A 20-gauge spinal needle was inserted into the L1-L2 interlaminar space, and approximately 10 cc of clear colorless cerebrospinal fluid was removed. The patient tolerated the procedure well. There were no immediate complications. The patient was then transported to the medical treatment unit for further observation. Fluoroscopy time: 0.4 minutes IMPRESSION: Fluoroscopic guided lumbar puncture with removal of approximately 10 cc of cerebrospinal fluid. There were no immediate complications. ACT 112: Negative or not required by law. The above report was generated using voice recognition software. It may contain grammatical, syntax or spelling errors. Electronically signed by: Naldo Ribera M.D. 08/06/2022 10:44 AM
--- NOTE | 2022-08-06 15:13 | Discharge Summary ---
Date of Service August 06, 2022 Admission HPI Per Admitting Provider 21 y/o female w/ pmhx of large amount of medical workup for chronic abdominal symptoms who presents for BLE numbness/weakness/inability to ambulate. She has had constant radicular pain since this summer with intermittent numbness/tingling down to toes. This evening's presentation involved constant paresthesias and worsened pain. It affect one leg then the other. She saw her pcp her symptoms a few weeks ago. She has not seen neuro for this; saw in Nov 2021 for migraines. The previous night, she noted R arm numbness/tingling that resolved after 30 minute. She denies increased stress. She had surgery for endometriosis in May 2022 and diagnostic laparascopy in 07/2021 for chronic abd pains. She states her and abd symptoms have resolved. Denies incontinence. Today, she has had new groin numbness. She endorsed dizziness; MRI brain IAC was normal. MRI L spine was normal. There was minimal posterior space narrowing at L4-L5. 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 ED course: toradol. cbc, cmp, ua neg Admission Exam Per Admitting Provider General: Grossly A&O. NAD. Cooperative. HEENT: Atraumatic, normocephalic. EOMI. PERRL Pulm: CTAB. -wheezes, -rales, -rhonchi. No respiratory distress. Cardiac: RRR, -mrg. Radial pulses intact and symmetrical. Abdominal: Nontender, nondistended, soft. neuro: 5+/5 BUE BLE. Normal sensation. Neg finger to nose. CN II-XII intact. Symmetric patellar reflex bilat, ~1+ Msk: ttp entire low back. needed assistance w/ transfer from supine to sitting on [facility] Principal Diagnosis Paresthesia of bilateral legs Discharge Exam Constitutional WD/WN, vitals as above Eyes PERRL, conjunctivae normal, anicteric sclerae ENMT external ear and nose normal, oropharynx normal Respiratory normal respiratory effort, lungs clear to auscultation Cardiovascular RRR, no murmur, no edema Gastrointestinal (Abdomen) normal bowel sounds, soft, nontender, no hepatosplenomegaly Musculoskeletal Spine: + limited thoraco-lumbar ROM Extremities: + limited ROM of extremities (BL LE ) and strength 5/5 throughout Hip: + limited ROM of hip (BL LE ) Skin no rashes, warm and dry Neurologic patellar DTR's 2+ bilat, sensation intact Psychiatric A+Ox3, euthymic affect Discharge Data Allergies Allergy/AdvReac Type Severity Reaction Status Date / Time Penicillins Allergy Unknown HAPPENED Verified 08/04/22 21:35 AN INFANT Consultations 08/04/22 19:47 ED Decision to Admit Stat 08/05/22 07:00 Consult Neurology Routine Ordered Studies 08/04/22 14:50 MRI Brain [MR brain IAC wo con] Stat MRI Lumbar Spine [MR lumbar spine wo con] Stat 08/05/22 15:44 MR cervical spine wo/w con Urgent 08/05/22 15:45 MR thoracic spine wo/w con Urgent 08/06/22 08:30 FL lumbar puncture diagnostic Routine Hospital Course (1) Bilateral leg numbness: (2) Ambulatory dysfunction: (3) Anxiety and depression: Total Time Total Time Spent Total Time Spent (In Minutes): 21 y/o female w/ pmhx of large amount of medical workup for chronic abdominal symptoms who presents for bilateral LE numbness and weakness. As well as inability to ambulate. Paresthesia of bilateral legs -ddx: neuropathy (MS, gullaine barre, tickborne), atypical migraine, sciatica, psychogenic. -Neuro consulted. -MRI w/o of the cervical, thoracic spine, and lumbar spine were all negative. Lumbar puncture was protein and glucose were normal. Studies still pending at time of discharge. -vit b12, folic acid, copper, and lyme titers were normal. -Patient's back pain improved with pain meds during admission. -OMT to the lumbar spine and scrum was performed during hospitalization. Patient tolerated OMT well. -PT and OT consulted and stated to use a walker at home when needed. -Neurology recommend to have EMG and nerve conduction study outpatient. - Patient's anxiety and depression may be underlying her issues. Recommend to f/u with PCP to discuss further management of her anxiety and depression. Though patient denies any recent stress or anxiety that could possibly lead to her issues. -Neurology's final impression of the patient's of the patient is: "The patient has been complaining of intermittent bilateral lower extremity paresthesias for last several months. She reports that since last Tuesday, she has been experiencing constant tingling sensation of lower extremities with new worsening lower extremity weakness, and decided to present to emergency department yesterday. She denies any falls, injuries, or pain. Brain and lumbar spine MRI without contrast were unremarkable. Normal deep tendon reflexes and inconsistencies with physical examination are not suggestive of acute neuro pathology as seen in GBS or myelopathy. Since admission C and T spine MRIs w/wo contrast have been done without pathology. Initial CSF w/u have been normal. Some CSF lab results might take a week to get. We strongly believe that this is a non-organic process." -Patient was able to walk unassisted at time of discharge. Her vitals are stable. She wishes to leave today and to continue treatment and further workup as an outpatient. Discharge Plan Discharge Items Patient Disposition: Home - Self-Care Reason For Visit: LOW BACK PAIN W/ BILAT RADICULAR PAIN, PARESTHESIA Discharge Diagnosis: Paresthesia of bilateral legs Activity: Resume your previous activity Non-emergency contact: Primary Care Provider Call non-emergency contact if: you have any medication questions and your temperature is above 101.5 Follow-up/Referrals: Margot Vivas DO [Primary Care Provider] - 08/13/22 2:50 pm (With [facility] ) Diet: Regular Addtl Attending Provider Instructions: You were admitted to the hospital for paresthesia of bilateral legs. You were worked up for multiple causes of your paresthesia by neurology. No underlying cause at this time was found. There are studies still pending and you should follow up with your PCP and neurology to go over those results once they come back. You are also supposed to have an EMG and nerve conduction study with neurology as an outpatient. A discharge summary will be sent to your primary care physician to ensure cont inuity of care. Please bring this discharge summary with you to your next office appointment so that your provider can review it at that time. Follow-up appointments: * Make a follow-up appointment with your PCP within the next week. It is very important that you follow up with them shortly after discharge from the hospital. * Make a follow-up appointment with [facility] neurology in the next 3-4 weeks. This is an important to continue workup for your bilateral paresthesia. * Keep all your follow-up appointments as already scheduled. If you cannot make an appointment, notify your provider. Medications: Your medication list has been reviewed and reconciled upon discharge to ensure accuracy and continuity of care. An updated list of all your medications is included with your hospital discharge paperwork. Please review this list closely, and make note of any changes. * No new medications were added at this time. * If you have any issues filling these prescriptions, please call [phone] and ask to leave a message for Dr. Pérez. * Take your medications as instructed; do not skip a dose of your medicines. Make sure all of your doctors know every medicine you are taking (including weoz-nnu-rqxwiub medicines, vitamins, and supplements). Call your primary care provider before taking any new medicines (including over- the-counter medi cines, vitamins, and supplements), because some of these may interact with your current medications, or may make your symptoms worse. Tell your primary care provider if you cannot afford your medications. CONTACT YOUR PRIMARY CARE PROVIDER if you experience any of the following: * Worsening of symptoms * Fever, chills, or fatigue * Difficulty following your treatment plan, or difficulty taking medications CALL 911 OR GO TO THE EMERGENCY DEPARTMENT if you experience any of the following: * Sudden, severe abdominal pain or nausea/vomiting * Severe chest pain, or chest pain that radiates (moves) to your jaw or arm * Sudden, severe shortness of breath or difficulty breathing Thank you for allowing us to participate in your care. Pending Studies at Discharge: No Stand-Alone Forms: [facility], Smoking Cessation Medications and DC Order Prescriptions: Continued medroxyprogesterone [Depo-Provera] 150 mg/mL suspension 150 mg IM ONCE Qty: 1 3RF Rx Instructions: Perform 1 injection every 12 weeks as scheduled bupropion HCl 150 mg tablet extended release 24 hr 150 mg PO QAM amitriptyline 10 mg tablet 10 mg PO DAILY Rx Instructions: take 1 tablet by mouth once daily eszopiclone 1 mg tablet 1 mg PO HS PRN (Reason: Insomnia) Rx Instructions: do not use every night acetaminophen [Tylenol Extra Strength] 500 mg tablet 1,000 mg PO Q6H PRN (Reason: Pain) ondansetron HCl 4 mg tablet 4 mg PO Q8H PRN (Reason: nausea and vomiting) Qty: 20 0RF Discharge Orders: Discharge Order (Routine); Ordered 08/06/22 Ordered By: Lei Reyes/Other Patient Handouts: Preventing Deep Vein Thrombosis Admission Data Admit Date/Time: 08/04/22 22:18 Attending Provider: Chayo Cordero Admit Provider: Ricci Bonner Primary Care Provider: Margot Vivas Other Providers: Keyonna French ; Kamari Lees. Other Interventions: Discharge Summary Assessment (RN) Last Done: 08/06/22 15:27 Supervising Physician Co-Signing Physician Notes Resident Physician Supervision Note: I independently interviewed and examined the patient and verified the goss history and physical, reviewed labs and image studies and agree with resident findings and care plan. Resident Activity Tracking Resident Involvement: Resident Care Provided Care Provided: Adult Hospital Medicine
[2022-08-11 18:52] LABS: Lyme IgG Band Pattern CSF DNR; Lyme IgG CSF NO BANDS DETECTED; Lyme IgM Band Pattern CSF DNR; Lyme IgM CSF NO BANDS DETECTED
[2022-08-14 22:37] LABS: Albumin 4.2 g/dL (3.5-5.2); Albumin, CSF 12.9 mg/dL (8.0-42.0); IgG CSF 1.6 mg/dL (0.8-7.7); IgG Index, CSF 0.54 (<0.66); IgG Serum 972 mg/dL (600-1640); Myelin Basic Protein <2.0 mcg/L (<=4.0); Synthesis Rate, IgG CSF -2.5 mg/24 h (-9.9-3.3)
== END 2022-08-06 16:11 | disposition home or self-care (01) | DRG 93 ==
LOC: ED 11:55 → 3E 22:18 → SUATTDRO 22:18 → 3E 23:51